=== PATIENT | female | born 1940 | race Caucasian/White ===

== ENCOUNTER 2019-03-07 16:51 | Emergency (ER) | payer OTHER ==
[~2019-03-07] VITALS: Ht 157.5 cm; Wt 63.5 kg
[~2019-03-07 16:51] MED LIST: ALOPHEN PILLS5 MG PO; AMBIEN10 MG PO; ARICEPT10 MG PO; ASA81 MG; LIPITOR20 MG PO; PEPCID40 MG PO; PROTONIX20 MG PO; ZOFRAN4 MG PO
[2019-03-10] MEDS ORDERED: PRILOSEC10 MG (13:20)
[2019-03-10] MEDS ORDERED: NORVASC5 MG (13:20)
[2019-03-10] MEDS ORDERED: COZAAR100 MG (13:20)
== END 2019-03-07 21:21 | disposition home or self-care (01) ==
LOC: ER 16:51
DX: K52.89 Other specified noninfective gastroenteritis and colitis (principal)

== ENCOUNTER 2019-05-13 06:54 | Emergency (ER) | payer OTHER ==
[~2019-05-13] VITALS: Ht 162.6 cm; Wt 65.3 kg
[~2019-05-13 06:54] MED LIST changes: +COZAAR100 MG; +NORVASC5 MG; +PRILOSEC10 MG
== END 2019-05-13 12:57 | disposition home or self-care (01) ==
LOC: ER 06:54
DX: K52.89 Other specified noninfective gastroenteritis and colitis (principal)

== ENCOUNTER 2020-03-12 15:43 | Emergency (ER) | payer OTHER ==
[~2020-03-12] VITALS: Ht 160 cm; Wt 68.0 kg
== END 2020-03-12 22:34 | disposition home or self-care (01) ==
LOC: ER 15:43
DX: A08.8 Other specified intestinal infections (principal)

== ENCOUNTER 2022-02-20 15:20 | Emergency (ER) | payer OTHER ==
[~2022-02-20] VITALS: Ht 160 cm; Wt 63.5 kg
== END 2022-02-20 22:05 | disposition home or self-care (01) ==
LOC: ER 15:20
DX: A09 Infectious gastroenteritis and colitis, unspecified (principal); I10 Essential (primary) hypertension

== ENCOUNTER → 2022-10-13 | Emergency (ER) | payer OTHER ==
[~2022-10-13] VITALS: Ht 160 cm; Wt 59.9 kg
[~2022-10-13] MED LIST changes: +CIPRO500 MG PO; +INTESTINEX680 M1 PO; +METRONIDAZOLE500 MG PO
== END | disposition home or self-care (01) ==
LOC: ER 18:36
DX: R19.7 Diarrhea, unspecified (principal); I10 Essential (primary) hypertension

== ENCOUNTER 2023-01-11 15:33 | Emergency (ER) | payer OTHER ==
[~2023-01-11] VITALS: Ht 160 cm; Wt 59.9 kg
== END 2023-01-11 21:19 | disposition home or self-care (01) ==
LOC: ER 15:33
DX: K29.70 Gastritis, unspecified, without bleeding (principal); R19.7 Diarrhea, unspecified; R11.2 Nausea with vomiting, unspecified; I10 Essential (primary) hypertension